=== PATIENT | male | born 1990 | race Caucasian/White ===

== ENCOUNTER 2019-09-01 12:32 | Emergency (ER) | payer OTHER ==
[~2019-09-01] VITALS: Ht 180.3 cm; Wt 81.7 kg
[~2019-09-01 12:32] MED LIST: ALBU8HFA2 INH; AMOX500 PO; AZIT250 PO; Bactrim Ds Tab1 EACH PO; CEPH500 PO; CIPR500 PO; Cephalexin500 MG PO; Cleocin HCl300 MG PO; DEXT30SU PO; HYDCOR1TO TOP; METPRE4DP PO; MUPI2TC TOP; NAPR500 PO; NEOPOLHCSU LEFTEAR; OMEP20ER PO; OXYACE5T PO; OXYACE7.5T PO; PHENA200 PO; PRAX240 ML TP; PRED10 PO; Pepcid20 MG PO; Prednisone10 MG PO; RXOXYACE PO; SILSUL1TC TOP; TRAM50 PO; Vistaril25 MG PO
== END 2019-09-01 14:54 | disposition home or self-care (01) ==
LOC: ER 12:32
DX: G43.909 Migraine, unspecified, not intractable, without status migrainosus (principal); F17.210 Nicotine dependence, cigarettes, uncomplicated
CPT/HCPCS: 70450; 96361; 96374; 96375; 99283-25; J1100; J1200; J1885; J2765; J7030

== ENCOUNTER 2020-11-21 18:10 | Emergency (ER) | payer OTHER ==
[~2020-11-21] VITALS: Ht 177.8 cm; Wt 77.1 kg
[~2020-11-21 18:10] MED LIST changes: +Norco 5-325 Ta1 EACH PO
== END 2020-11-21 20:54 | disposition home or self-care (01) ==
LOC: ER 18:10
DX: T18.128A Food in esophagus causing other injury, initial encounter (principal); F17.210 Nicotine dependence, cigarettes, uncomplicated
CPT/HCPCS: 99283; A9270

== ENCOUNTER 2020-12-06 19:33 | Emergency (ER) | payer OTHER ==
[~2020-12-06] VITALS: Ht 180.3 cm; Wt 74.8 kg
[2020-12-07] MEDS ORDERED: OMEP20ER (09:34)
== END 2020-12-06 22:15 | disposition home or self-care (01) ==
LOC: ER 19:33
DX: T18.128A Food in esophagus causing other injury, initial encounter (principal); F17.210 Nicotine dependence, cigarettes, uncomplicated
CPT/HCPCS: 36415; 70360; 71045; 96374; 99283-25; J1610

== ENCOUNTER 2020-12-07 09:10 | Day surgery (SDC) | payer OTHER ==
[~2020-12-07] VITALS: Ht 177.8 cm; Wt 74.0 kg
[2020-12-07] MEDS ORDERED: OMEP20ER (09:34)
== END 2020-12-07 10:56 | disposition home or self-care (01) ==
LOC: ORSCSDS 09:10
PROVIDERS: Internal Medicine Gastroenterology
PROC: 0DB98ZX Excision of Duodenum, Via Natural or Artificial Opening Endoscopic, Diagnostic (ICD-10-PCS; principal; 2020-12-07 10:30)
PROC: 0DB68ZX Excision of Stomach, Via Natural or Artificial Opening Endoscopic, Diagnostic (ICD-10-PCS; principal; 2020-12-07 10:30)
PROC: 0DB58ZX Excision of Esophagus, Via Natural or Artificial Opening Endoscopic, Diagnostic (ICD-10-PCS; principal; 2020-12-07 10:30)
DX: R13.10 Dysphagia, unspecified (principal); K21.9 Gastro-esophageal reflux disease without esophagitis; K44.9 Diaphragmatic hernia without obstruction or gangrene; F17.210 Nicotine dependence, cigarettes, uncomplicated; Z79.899 Other long term (current) drug therapy
CPT/HCPCS: 88305; 88342; J2250; J2704; J7120

== ENCOUNTER 2021-12-20 18:03 | Emergency (ER) | payer OTHER ==
[~2021-12-20] VITALS: Ht 180.3 cm; Wt 82.5 kg
[~2021-12-20 18:03] MED LIST changes: +OMEP20ER
[2021-12-23] MEDS ORDERED: IMITREX50 M2 PO (14:53)
[2021-12-23] MEDS ORDERED: METO10 PO (16:00)
[2021-12-23] MEDS ORDERED: IBUP400 PO (16:00)
== END 2021-12-20 20:08 | disposition home or self-care (01) ==
LOC: ER 18:03
DX: R51.9 Headache, unspecified (principal); F17.210 Nicotine dependence, cigarettes, uncomplicated
CPT/HCPCS: 36415; 96374; 96375; 99283-25; A9270; J0780; J1100; J1885

== ENCOUNTER → 2022-01-29 | Outpatient (CLI) | payer OTHER ==
[~2022-01-29] MED LIST changes: +IBUP400 PO; +IMITREX50 M2 PO; +METO10 PO
[2022-01-29 19:03] LABS: BASOPHILS ABSOLUTE AUTO 0.08 K/mm3 (0.00-0.23); BASOPHILS PERCENT AUTO 1 % (0-2); EOSINOPHILS ABSOLUTE AUTO 0.28 K/mm3 (0.00-0.68); EOSINOPHILS PERCENT AUTO 3 % (0-6); Hematocrit 43.8 % (37.0-53.0); Hemoglobin 15.1 g/dL (13.5-17.5); IMMATURE GRAN ABSOLUTE AUTO 0.02 K/mm3 (0.00-0.10); IMMATURE GRAN PERCENT AUTO 0 % (0-1); LYMPHOCYTES ABSOLUTE AUTO 2.33 K/mm3 (0.84-5.20); LYMPHOCYTES PERCENT AUTO 28 % (21-46); MONOCYTES ABSOLUTE AUTO 0.57 K/mm3 (0.16-1.47); MONOCYTES PERCENT AUTO 7 % (4-13); Mean Corpuscular HGB 31.9 pg (26.0-34.0); Mean Corpuscular HGB Conc 34.5 g/dL (31.5-36.5); Mean Corpuscular Volume 93 fL (80-100); Mean Platelet Volume 9.7 fL (9.1-12.4); NEUTROPHILS ABSOLUTE AUTO 5.02 K/mm3 (1.96-9.15); NEUTROPHILS PERCENT AUTO 60 % (41-73); Platelet Count 267 K/mm3 (150-400); RDW Coefficient Variation 11.7 % (11.7-14.2); RDW Standard Deviation 40.2 fL (35.1-46.3); Red Blood Cell Count 4.73 M/mm3 (4.30-5.90)
[2022-01-29 22:39] LABS: Alanine Aminotransfer (ALT/SGP 32 U/L (12-78); Albumin, Blood 4.6 g/dL (3.4-5.0); Albumin/Globulin Ratio 1.4 (0.8-1.8); Alk Phos 65 U/L (50-136); Anion Gap 8 mmol/L (6-16); Aspartate Aminotrans (AST/SGOT 19 U/L (12-37); Bilirubin, Total 0.6 mg/dL (0.1-1.0); Blood Urea Nitrogen 13 mg/dL (8-24); Bun/Creatinine Ratio 16.6 (12.0-20.0); CHOL/HDL RATIO 2.2; CO2, Blood 28 mmol/L (21-32); Calcium, Blood 9.5 mg/dL (8.5-10.1); Chloride, Blood 103 mmol/L (98-108); Cholesterol 186 mg/dL (50-200); Creatinine, Blood 0.78 mg/dL (0.60-1.20); Globulin, Blood 3.4 g/dL (2.2-4.0); Glomerular Filtration Rate >60 (60-); Glucose, Blood 90 mg/dL (70-99); HDL Cholesterol 86 mg/dL (>39); Low Density Lipoprotein Chol 89 mg/dL (0-110); Potassium, Blood 3.7 mmol/L (3.5-5.5); Sodium, Blood 139 mmol/L (136-145); Triglycerides 56 mg/dL (30-140); Very Low Density Lipoprot Chol 11 mg/dL (6-28)
== END | disposition home or self-care (01) ==
LOC: LAB SHORT 17:15
PROVIDERS: Physician Assistant
DX: Z13.6 Encounter for screening for cardiovascular disorders (principal)
CPT/HCPCS: 80053; 80061; 85025

== ENCOUNTER 2023-03-13 10:33 | Day surgery (SDC) | payer OTHER ==
[~2023-03-13] VITALS: Ht 177.8 cm; Wt 75.8 kg
[2023-03-13] MEDS ORDERED: OMEP20ER (10:50)
[2023-03-13 13:43] VITALS: BP 138/91
== END 2023-03-13 13:10 | disposition home or self-care (01) ==
LOC: ORSCSDS 10:33
PROVIDERS: Student in an Organized Health Care Education/Training Program
PROC: 0DBN8ZX Excision of Sigmoid Colon, Via Natural or Artificial Opening Endoscopic, Diagnostic (ICD-10-PCS; principal; 2023-03-13 12:00)
PROC: 0DBP8ZX Excision of Rectum, Via Natural or Artificial Opening Endoscopic, Diagnostic (ICD-10-PCS; principal; 2023-03-13 12:00)
PROC: 0DBH8ZX Excision of Cecum, Via Natural or Artificial Opening Endoscopic, Diagnostic (ICD-10-PCS; principal; 2023-03-13 12:00)
DX: K62.5 Hemorrhage of anus and rectum (principal); K63.5 Polyp of colon; K62.1 Rectal polyp; K64.8 Other hemorrhoids; F17.210 Nicotine dependence, cigarettes, uncomplicated; Z79.899 Other long term (current) drug therapy
CPT/HCPCS: 88305; J2250; J2704; J7120

== ENCOUNTER 2023-07-04 19:40 | Emergency (ER) | payer OTHER ==
[~2023-07-04] VITALS: Ht 180.3 cm; Wt 81.7 kg
[~2023-07-04 19:40] MED LIST changes: +LISI5
[2023-07-04] MEDS ORDERED: LISINOPRIL 20 MG (19:46)
[2023-07-04 22:55] VITALS: BP 130/82
== END 2023-07-04 23:21 | disposition short-term general hospital (02) ==
LOC: ER 19:40
DX: T18.128A Food in esophagus causing other injury, initial encounter (principal); F17.210 Nicotine dependence, cigarettes, uncomplicated; X58.XXXA Exposure to other specified factors, initial encounter
CPT/HCPCS: 96374; 99284-25; J1610; J2765

== ENCOUNTER 2024-06-10 06:43 | Day surgery (SDC) | payer OTHER ==
[~2024-06-10] VITALS: Ht 180.3 cm; Wt 96.4 kg
[~2024-06-10 06:43] MED LIST changes: +LISINOPRIL 20 MG
[2024-06-10] MEDS ORDERED: AMLO5 (06:55)
[2024-06-10] MEDS ORDERED: ONDA4ODT (06:56)
[2024-06-10] MEDS ORDERED: SUMA25 (06:56)
[2024-06-10] MEDS ORDERED: Glycopyrrolate 0.2 MG/ML 1MLVIAL ONE (07:25)
[2024-06-10] MEDS ORDERED: propofoL 50 ML IV ONE (07:25)
[2024-06-10] MEDS ORDERED: Ondansetron HCl 2 MG / ML 2ML Vial ONE (07:25)
[2024-06-10] MEDS ORDERED: Lactated Ringer's 1,000 ML IV ONE ×2 (07:25→07:52)
[2024-06-10] MEDS ORDERED: Atropine Sulfate 0.1 MG/ML 10ML SYR ONE (07:27)
[2024-06-10] MEDS ORDERED: ePHEDrine Sulfate 50 MG/ML 1ML Injection ONE (07:27)
[2024-06-10] MEDS ORDERED: Midazolam HCL 1 MG/ML 5MLVIAL ONE (07:47)
[2024-06-10 09:11] VITALS: BP 133/84
== END 2024-06-10 08:55 | disposition home or self-care (01) ==
LOC: ORSCSDS 06:43
PROVIDERS: Internal Medicine Gastroenterology
PROC: 0D757ZZ Dilation of Esophagus, Via Natural or Artificial Opening (ICD-10-PCS; principal; 2024-06-10 08:00)
PROC: 0DB58ZX Excision of Esophagus, Via Natural or Artificial Opening Endoscopic, Diagnostic (ICD-10-PCS; principal; 2024-06-10 08:00)
DX: K20.90 Esophagitis, unspecified without bleeding (principal); K44.9 Diaphragmatic hernia without obstruction or gangrene; F17.210 Nicotine dependence, cigarettes, uncomplicated; Z79.899 Other long term (current) drug therapy
CPT/HCPCS: 88305; 93005; 93010; J0461; J2250; J2405; J2704; J7120

== ENCOUNTER → 2025-07-03 | Outpatient (CLI) | payer OTHER ==
[~2025-07-03] MED LIST changes: +AMLO5; +ONDA4ODT; +SUMA25
[2025-07-03 17:36] LABS: BASOPHILS ABSOLUTE AUTO 0.08 K/mm3 (0.00-0.23); BASOPHILS PERCENT AUTO 1 % (0-2); EOSINOPHILS ABSOLUTE AUTO 0.37 K/mm3 (0.00-0.68); EOSINOPHILS PERCENT AUTO 6 % (0-6); Hematocrit 33.4 % (37.0-53.0); Hemoglobin 10.9 g/dL (13.5-17.5); IMMATURE GRAN ABSOLUTE AUTO 0.01 K/mm3 (0.00-0.10); IMMATURE GRAN PERCENT AUTO 0 % (0-1); LYMPHOCYTES ABSOLUTE AUTO 1.36 K/mm3 (0.84-5.20); LYMPHOCYTES PERCENT AUTO 20 % (21-46); MONOCYTES ABSOLUTE AUTO 0.75 K/mm3 (0.16-1.47); MONOCYTES PERCENT AUTO 11 % (4-13); Mean Corpuscular HGB Conc 32.6 g/dL (31.5-36.5); Mean Corpuscular Volume 84 fL (80-100); NEUTROPHILS ABSOLUTE AUTO 4.12 K/mm3 (1.96-9.15); NEUTROPHILS PERCENT AUTO 62 % (41-73); NRBC ABSOLUTE 0.00 K/mm3 (0.00-0.02); NRBC Auto 0.0 /100 WBC (0.0-0.2); Platelet Count 358 K/mm3 (150-400); RDW Coefficient Variation 14.6 % (11.7-14.2); RDW Standard Deviation 45.0 fL (35.1-46.3)
[2025-07-03 18:53] LABS: Alanine Aminotransfer (ALT/SGP 60 U/L (12-78); Albumin, Blood 4.3 g/dL (3.4-5.0); Albumin/Globulin Ratio 1.3 (0.8-1.8); Anion Gap 9 mmol/L (3-11); Aspartate Aminotrans (AST/SGOT 37 U/L (12-37); Bilirubin, Total 0.3 mg/dL (0.1-1.0); Blood Urea Nitrogen 14 mg/dL (8-24); CHOL/HDL RATIO 2.4; CO2, Blood 26 mmol/L (21-32); Calcium, Blood 9.3 mg/dL (8.5-10.1); Chloride, Blood 100 mmol/L (98-108); Cholesterol 218 mg/dL (50-200); Creatinine, Blood 0.81 mg/dL (0.60-1.20); Globulin, Blood 3.2 g/dL (2.2-4.0); Glucose, Blood 99 mg/dL (70-99); HDL Cholesterol 92 mg/dL (>39); LDL/HDL RATIO 1.2; Low Density Lipoprotein Chol 108 mg/dL (0-110); Potassium, Blood 4.0 mmol/L (3.5-5.5); Sodium, Blood 131 mmol/L (136-145); Thyroid Stimulating Hormone 0.920 uIU/mL (0.360-4.800); Total Protein, Blood 7.5 g/dL (6.4-8.2); Triglycerides 88 mg/dL (30-140); Very Low Density Lipoprot Chol 17 mg/dL (6-28)
== END ==
LOC: LAB SHORT 16:47 → LAB 16:47
PROVIDERS: Physician Assistant
DX: Z51.81 Encounter for therapeutic drug level monitoring (principal); Z79.899 Other long term (current) drug therapy
CPT/HCPCS: 80053; 80061; 82306; 83036; 84443; 85025